=== PATIENT | female | born 2000 | race Caucasian/White ===

== ENCOUNTER 2020-07-14 13:56 | Emergency (ER) | payer OTHER, SELFPAY ==
--- NOTE | 2020-07-14 14:12 | ED.FEMALEGU ---
HPI - Female Genitourinary General Chief complaint: Urogenital-Female Stated complaint: painful urination Time Seen by Provider: 07/14/20 14:12 Source: patient and RN notes reviewed History of Present Illness HPI Narrative: Patient is a 20-year-old female who presents the urgent care with complaints of painful urination. Patient states that it started 2 days ago and she has been taking Azo for her symptoms. Patient states that she came today because she called off work yesterday due to the pain. Patient states that she always takes Azo for her symptoms and it seems to go away . Patient notices the symptoms after soda or heavy sugary drinks such as orange juice. Patient denies of any urinary frequency, urgency, blood in the urine. Denies of any fever, chills, nausea, vomiting. No other acute complaints. No acute distress noted. Patient aware of the plan of care. Some parts of this dictation were generated by voice recognition software and may contain typographical and/or grammatical inaccuracies. Related Data Home Medications Medication Instructions Recorded Confirmed No Home Medications 07/14/20 07/14/20 Allergies Allergy/AdvReac Type Severity Reaction Status Date / Time ondansetron [From Zofran] AdvReac Nausea and Verified 07/14/20 14:13 Vomiting Review of Systems Review of Systems: Narrative: CONSTITUTIONAL: Denies fever, chills, or sweats. EYES: Denies visual changes, redness, or discharge. ENT: Denies rhinorrhea, congestion, sore throat, or otalgia. CARDIOVASCULAR: Denies chest pain, palpitations, or edema. RESPIRATORY: Denies cough or dyspnea. GASTROINTESTINAL: Denies abdominal pain, nausea, vomiting, or diarrhea. GENITOURINARY: Reports of dysuria SKIN: Denies rash or itching. MUSCULOSKELETAL: Reports of mild low back pain NEUROLOGIC: Denies headache, numbness, or weakness. All other systems reviewed are negative, except as documented in HPI. PMFSH Comments At the time of my signature, I reviewed and agree with the nursing past medical, surgical, social, and family history. There is no relevant family history pertinent to the patient complaint. Exam Narrative: Exam Narrative: GENERAL: This is a well-nourished, well-developed patient, in no apparent distress. HEAD: normocephalic, atraumatic. EYES: PERRL. Sclera clear/white. Vision is grossly intact. EARS: External ears normal NOSE: External nose normal with no obvious nasal discharge, nares without redness, no rhinorrhea. THROAT: Mucous membranes moist GASTROINTESTINAL: Abdomen soft, mild suprapubic pressure, nondistended. Bowel sounds are active. SKIN: warm, intact with no suspicious lesions or rash, good texture and turgor. NEURO: awake, alert, and oriented to person, place and time. There were no obvious focal neurologic abnormalities. EXTREMITIES: No clubbing, cyanosis, or edema. BACK: Mild right CVA tenderness Course Vital Signs Vital signs: Vital Signs Temperature 97.8 F 07/14/20 14:14 Pulse Rate 78 07/14/20 14:14 Respiratory Rate 14 07/14/20 14:14 Blood Pressure 110/64 07/14/20 14:14 Pulse Oximetry 98 07/14/20 14:14 Temperature 97.8 F 07/14/20 14:14 Pulse Rate 78 07/14/20 14:14 Respiratory Rate 14 07/14/20 14:14 Blood Pressure 110/64 07/14/20 14:14 Pulse Oximetry 98 07/14/20 14:14 Reviewed MDM - Female Genitourinary MDM Narrative Medical decision making narrative: Reviewed lab results with the patient. She is aware that urine analysis is not indicative of a urinary tract infection. Typically trace leukocytes does not indicate infection however we will culture the urine and call if medication is necessary. You may check on your culture results after the 72-hours. Explained cystitis to the patient and advised her to follow-up with the urologist due to her chronic symptoms. Advised the patient to stay away from her triggers such as soda and sugary drinks. Increase water intake. Do not soak in so
[2020-07-14 14:14] VITALS: BP 110/64; PULSE 78; RESP 14; TEMP 36.6; O2SAT 98
== END 2020-07-14 14:35 | disposition home or self-care (01) ==
PROVIDERS: Emergency Provider Nurse Practitioner Family
DX: N30.90 Cystitis, unspecified without hematuria (principal)
CPT/HCPCS: 81003; 87086; 87088; 99213; G0463